=== PATIENT | female | born 1980 | race Caucasian/White ===

== ENCOUNTER 2019-03-21 01:51 | Emergency (ER) | payer SELFPAY ==
[~2019-03-21] VITALS: Ht 162.6 cm; Wt 115.3 kg
[2019-03-21 03:42] VITALS: BP 138/99
--- NOTE | 2019-03-21 20:26 | ECGEPIP ---
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
== END 2019-03-21 05:31 | disposition home or self-care (01) ==
LOC: M ED 01:51
DX: R07.89 Other chest pain (principal); I10 Essential (primary) hypertension; F41.1 Generalized anxiety disorder; Z88.0 Allergy status to penicillin

== ENCOUNTER → 2019-05-01 | Outpatient (REF) | payer OTHER | LOC: M SFHCLERA 09:40 | PROVIDERS: ATTEND Nurse Practitioner Family | DX: R68.89 Other general symptoms and signs (principal) ==

== ENCOUNTER → 2019-07-24 | Outpatient (REF) | payer OTHER, MEDICAID ==
[2019-07-24 15:28] LABS: BASO # 0.1 10^3/uL (0.0-0.2); BASO % 0.6 % (0.0-1.0); EOS # 0.2 10^3/uL (0.0-0.5); EOS % 2.4 % (0.0-3.0); HEMATOCRIT 43.6 % (36.0-47.0); HEMOGLOBIN 14.6 g/dl (12.0-15.5); LYMPH # 2.9 10^3/uL (1.5-5.0); MEAN CORPUSCULAR HEMOGLOBIN 29.7 pg (27.0-33.0); MEAN CORPUSCULAR HGB CONC 33.5 g/dl (32.0-36.5); MEAN CORPUSCULAR VOLUME 88.8 fl (80.0-96.0); MONO # 0.8 10^3/uL (0.0-0.8); MONO % 8.9 % (0.0-5.0); NEUTROPHILS # 4.8 10^3/uL (1.5-8.5); NEUTROPHILS % 54.4 % (36.0-66.0); PLATELET COUNT, AUTOMATED 292 10^3/uL (150-450); RED BLOOD COUNT 4.91 10^6/uL (4.00-5.40); WHITE BLOOD COUNT 8.8 10^3/uL (4.0-10.0)
[2019-07-24 15:40] LABS: ALBUMIN 3.6 GM/DL (3.2-5.2); ALT/SGPT 65 U/L (12-78); BILIRUBIN,TOTAL 0.8 MG/DL (0.2-1.0); BLOOD UREA NITROGEN 10 MG/DL (7-18); CALCIUM LEVEL 8.7 MG/DL (8.5-10.1); CARBON DIOXIDE LEVEL 23 MEQ/L (21-32); CHLORIDE LEVEL 111 MEQ/L (98-107); CHOLESTEROL LEVEL 228 MG/DL (<200); CREATININE FOR GFR 0.73 MG/DL (0.55-1.30); FREE T4 1.08 NG/DL (0.76-1.46); GLOMERULAR FILTRATION RATE > 60.0 (>60); GLUCOSE, FASTING 97 MG/DL (70-100); HDL CHOLESTEROL 40 MG/DL (>40); LDL CHOLESTEROL 150 MG/DL (<100); NON-HDL-C 188 MG/DL; POTASSIUM SERUM 3.7 MEQ/L (3.5-5.1); SODIUM LEVEL 141 MEQ/L (136-145); TOTAL 25(OH) VITAMIN D 18.8 NG/ML (30.0-100.0); TOTAL PROTEIN 7.4 GM/DL (6.4-8.2); TRIGLYCERIDES LEVEL 188 MG/DL (<150)
== END ==
LOC: M LAB REF 12:23
PROVIDERS: ATTEND Physician Assistant
DX: F41.0 Panic disorder [episodic paroxysmal anxiety] (principal); E66.01 Morbid (severe) obesity due to excess calories; Z68.41 Body mass index [BMI] 40.0-44.9, adult

== ENCOUNTER → 2021-07-31 | Outpatient (REF) | LOC: M LABSMTC 10:38 | PROVIDERS: ATTEND Family Medicine | DX: Z11.52 Encounter for screening for COVID-19 (principal) ==

== ENCOUNTER 2024-12-26 08:33 | Emergency (ER) | payer MEDICAID, OTHER, SELFPAY ==
[~2024-12-26] VITALS: Ht 162.6 cm; Wt 116.1 kg
[2024-12-26 09:05] LABS: BASO # 0.1 10^3/uL (0.0-0.2); BASO % 0.5 % (0.0-1.0); EOS # 0.3 10^3/uL (0.0-0.5); EOS % 2.2 % (0.0-3.0); LYMPH # 3.5 10^3/uL (1.5-5.0); LYMPH % 27.2 % (24.0-44.0); MONO # 0.9 10^3/uL (0.0-0.8); MONO % 7.2 % (2.0-8.0); NEUTROPHILS # 7.9 10^3/uL (1.5-8.5); NEUTROPHILS % 62.2 % (36.0-66.0); PLATELET COUNT, AUTOMATED 362 10^3/uL (150-450)
[2024-12-26] MEDS ORDERED: KETOROLAC 30 MG/ML 1 ML VIAL IV ONE (09:05)
[2024-12-26 09:37] LABS: CALCIUM LEVEL 8.8 MG/DL (8.5-10.1); CARBON DIOXIDE LEVEL 25 MMOL/L (20-31); CHLORIDE LEVEL 111 MMOL/L (98-107); CREATININE FOR GFR 0.73 MG/DL (0.55-1.30); GLOMERULAR FILTRATION RATE > 90.0 (>58); POTASSIUM SERUM 3.7 MMOL/L (3.5-5.1); SODIUM LEVEL 144 MMOL/L (136-145)
[2024-12-26 09:38] LABS: HCG, SERUM QUALITATIVE NEGATIVE (NEGATIVE)
[2024-12-26] MEDS: ACETAMINOPHEN *IV* 1,000 MG in IV 1 EA IV ONE (09:55)
[2024-12-26] MEDS: NS 500 ML IV ONE (09:55)
[2024-12-26] MEDS: ONDANSETRON 4MG/2ML VIAL IV ONE (09:55)
[2024-12-26] MEDS: KETOROLAC 30 MG/ML 1 ML VIAL IV ONE (09:56)
[2024-12-26 10:01] VITALS: BP 149/84; O2SAT 99
[2024-12-26] MEDS: LIDOCAINE 2% 5 ML JELLY UROJET TOP ONE (10:38)
[2024-12-26] MEDS: MORPHINE 4 MG/ML 1 ML VIAL IV PRN (10:51)
[2024-12-26 11:04] LABS: KETONE, URINE AUTO RFX NEGATIVE (NEGATIVE); LEUKOCYTE ESTERASE UR AUTO RFX TRACE (NEGATIVE); MUCUS, URINE RFX LARGE (NEGATIVE); NITRITE, URINE AUTO RFX NEGATIVE (NEGATIVE); RBC, URINE AUTO RFX 157 /HPF (0-3); SQUAM EPITHELIAL CELL UR AURFX 74 /HPF (0-6); WBC, URINE AUTO RFX 28 /HPF (0-3)
[2024-12-26 11:19] VITALS: TEMP 96.9
[2024-12-26] MEDS ORDERED: BACT800T5 PO (11:32)
[2024-12-26] MEDS: BACTRIM 160MG/800MG DS TAB PO ONE (11:38)
== END 2024-12-26 11:49 | disposition home or self-care (01) ==
LOC: M ED 08:33
DX: N20.1 Calculus of ureter (principal); N39.0 Urinary tract infection, site not specified; Z79.2 Long term (current) use of antibiotics; Z88.0 Allergy status to penicillin
CPT/HCPCS: 74176; 80047; 80048; 81001; 84703; 85025; 87086; 93041; 96365; 96366; 96375; 99284; J0131; J1885; J2405